=== PATIENT | male | born 1955 | race Caucasian/White ===

== ENCOUNTER 2023-04-18 10:04 | Outpatient (CLI) | payer OTHER, SELFPAY ==
--- NOTE | ~2023-04-18 | XR_ITS ---
XR chest 2V DATE: 04/18/2023 10:28 INDICATION: Cough TECHNIQUE: 2 views COMPARISON: None FINDINGS: Bilateral hyperinflation suggesting COPD. No pulmonary infiltrate or consolidation, pleural effusion or pulmonary vascular congestion or pneumo thorax is detected. Heart size is within normal limits. No hilar or mediastinal enlargement. There is aortic arch and gre at vessel calcification. Mild thoracic dextroscoliosis. IMPRESSION: Bilateral hyperinflation, suggesting COPD Aortic atherosclerosis No active cardiopulmonary disease Reviewed, dictated and finalized at location B. TATION WIREMAN
--- NOTE | ~2023-04-18 | CT_ITS ---
Non-contrast Head CT History: Headache Technique: Axial non-contrast imaging of the brain was performed. Dose reduction technique was used on this scan by utilizing automated exposure control and iterative reconstruction technique. The dose -length product (DLP) was 599.57 mGy-cm. Findings: There is no evidence of intracranial hemorrhage, mass lesion, or acute infarct. Brain par enchyma appears normal. The ventricles and subarachnoid spaces are normal in size. The calvarium ap pears normal. There is mild right frontal and left ethmoid sinus disease. The remaining visualized pa ranasal sinuses and mastoid air cells are clear. Impression: No intracranial abnormality seen. Mild sinus disease, as above. Reviewed, dictated and finalized at location . EL ATTENDANT Impression: No intracranial abnormality seen. Mild sinus disease, as above.
== END 2023-04-18 10:05 ==
LOC: MICIMG 10:05
PROVIDERS: PCP Family Medicine; Visit Provider Family Medicine
DX: I70.0 Atherosclerosis of aorta (principal); J32.9 Chronic sinusitis, unspecified; R05.9 Cough, unspecified; E78.5 Hyperlipidemia, unspecified; I10 Essential (primary) hypertension; I11.9 Hypertensive heart disease without heart failure; R51.9 Headache, unspecified
CPT/HCPCS: 70450; 71046

== ENCOUNTER 2023-06-29 08:46 | Outpatient (CLI) | payer OTHER, SELFPAY ==
--- NOTE | ~2023-06-29 | MR_ITS ---
MRA HEAD History: Headache Technique: 3D time of flight MRA of the head is performed. Findings: The right and left distal vertebral arteries and the basilar and posterior cerebral arterie s are normal. Right and left distal internal carotid arteries and anterior and middle cerebral arteri es are normal. There is no aneurysm, stenosis, or occlusion. Impression: No occlusion, stenosis, or aneurysm. Reviewed, dictated and finalized at location . AND COAL TRANSPORT OPERATOR Impression: No occlusion, stenosis, or aneurysm.
--- NOTE | ~2023-06-29 | MR_ITS ---
MRI of the brain Clinical History: Headache Technique: Axial and sagittal T1-weighted images were acquired. These were followed by axial T2-weigh mike, diffusion weighted, gradient, and FLAIR images. Following intravenous administration of 17 cc Mu ltiHance gadolinium, T1-weighted fat-sat imaging was performed in the axial and coronal planes. Findings: There is no acute infarct, acute intracranial hemorrhage, or mass lesion. Focal hemosiderin noted in the right parietal lobe on gradient images. No other signal abnormality seen in the brain p arenchyma. Ventricles and subarachnoid spaces are unremarkable. Orbits are unremarkable. There is opacification of the right frontal sinus, as well as retention cyst or polyp in the left maxillary sinus. Remaining paranasal sinuses and mastoid air cells are clear. Major intracranial flow voids are intact. Midline structures are intact. No abnormal postcontrast enhancement identified. IMPRESSION: No acute intracranial abnormality. Small focus of hemosiderin right parietal lobe, which could reflect sequela of prior microhemorrhage. Mild sinus disease, as above. Reviewed, dictated and finalized at [facility]. GRAPHY TECHNICIAN
== END 2023-06-29 08:47 | disposition home or self-care (01) ==
LOC: ANHIMG 08:48
PROVIDERS: PCP Family Medicine; Visit Provider Nurse Practitioner Family
DX: R29.818 Other symptoms and signs involving the nervous system (principal)
CPT/HCPCS: 70544; 70553; A9577